=== PATIENT | female | born 1995 | race Caucasian/White ===

== ENCOUNTER 2020-12-15 23:24 | Emergency (ER) | payer OTHER ==
[2020-12-16 00:15] VITALS: BP 109/66; PULSE 79; TEMP 97.3; BMI 28.6
[2020-12-16] MEDS ORDERED: ACETAMINOPHEN 325 MG TABLET (FP) PO ONE (00:44)
[2020-12-16] MEDS ORDERED: ACETAMINOPHEN 325 MG TABLET (FP) ONE (00:50)
== END 2020-12-16 03:30 | disposition home or self-care (01) ==
LOC: JER 23:24
DX: M25.531 Pain in right wrist (principal); S09.90XA Unspecified injury of head, initial encounter
CPT/HCPCS: 70450-TC; 73090-TC-RT-FY; 73110-TC-RT-FY; 73130-TC-RT-FY; 84703; 99285-25